=== PATIENT | male | born 1985 | race Caucasian/White ===

== ENCOUNTER 2016-12-15 13:03 | Emergency (ER) | payer SELFPAY ==
[~2016-12-15] VITALS: Ht 188 cm; Wt 118.0 kg
[~2016-12-15 13:03] MED LIST: AMOXICILLIN500 MG PO; AUGMENTIN875 MG PO; FLOXIN OTIC SOLN5 ML BOTH EARS; MEDROL DOSEPAK4 MG PO; MOTRIN800 MG PO; TESSALON PERLE100 MG PO
[2016-12-15 13:57] LABS: MCH 29.7 PG (29.0-34.0); MCHC 32.8 G/DL (30.0-36.0); MCV 90.7 FL (86-99); MEAN PLAT.VOLUME 11.1 uM^3 (9.0-12.4); PLATELET COUNT 159 K/uL (156-360); RBC DIS.WIDTH-CV 12.4 % (11.8-14.6); RBC DIS.WIDTH-SD 41.1 % (39-53); RED BLOOD COUNT 3.97 M/uL (4.00-5.50); WHITE BLOOD COUNT 6.1 K/uL (4.1-10.2)
[2016-12-15 14:12] LABS: CHLORIDE 105 mEq/L (99-109); POTASSIUM 4.1 mEq/L (3.7-5.4); SODIUM 140 mEq/L (136-147)
[2016-12-15 14:14] LABS: GLUCOSE 116 mg/dL (70-99)
[2016-12-15 14:15] LABS: ANION GAP 7 MEQ/L (2-14)
[2016-12-15 14:18] LABS: GFR ESTIMATE (CALCULATED) > 59 mL/min/
[2016-12-15 14:19] LABS: UREA NITROGEN (BUN) 6 mg/dL (9-23)
[2016-12-15] MEDS ORDERED: RANITIDINE HCL150 MG PO (14:39)
[2016-12-15] MEDS ORDERED: PROTONIX40 MG PO (15:14)
[2016-12-15] MEDS ORDERED: CARAFATE1 GM PO (15:14)
[2016-12-15 15:30] VITALS: BP 110/67
== END 2016-12-15 15:30 | disposition home or self-care (01) ==
LOC: EME 13:03
DX: K29.70 Gastritis, unspecified, without bleeding (principal); K21.9 Gastro-esophageal reflux disease without esophagitis; F17.200 Nicotine dependence, unspecified, uncomplicated; Z88.6 Allergy status to analgesic agent
CPT/HCPCS: 80048; 85027; 86900; 86901; 99281; 99283

== ENCOUNTER 2017-03-04 23:42 | Emergency (ER) | payer SELFPAY ==
[~2017-03-04] VITALS: Ht 182.9 cm; Wt 127.0 kg
[~2017-03-04 23:42] MED LIST changes: +CARAFATE1 GM PO; +PROTONIX40 MG PO; +RANITIDINE HCL150 MG PO
[2017-03-05 00:42] LABS: HEMATOCRIT 38.1 % (38.0-50.0); MCH 26.3 PG (29.0-34.0); MCHC 31.5 G/DL (30.0-36.0); MCV 83.6 FL (86-99); MEAN PLAT.VOLUME 11.7 uM^3 (9.0-12.4); PLATELET COUNT 220 K/uL (156-360); RBC DIS.WIDTH-CV 13.5 % (11.8-14.6); RBC DIS.WIDTH-SD 41.6 % (39-53); RED BLOOD COUNT 4.56 M/uL (4.00-5.50); WHITE BLOOD COUNT 19.6 K/uL (4.1-10.2)
[2017-03-05 01:03] LABS: CHLORIDE 104 mEq/L (99-109); POTASSIUM 4.3 mEq/L (3.7-5.4); SODIUM 139 mEq/L (136-147); TROP-I INTERPRETATION NEGATIVE; TROPONIN-I 0.02 ng/mL (0.0-0.30)
[2017-03-05 01:05] LABS: GLUCOSE 161 mg/dL (70-99)
[2017-03-05 01:06] LABS: ANION GAP 12 MEQ/L (2-14)
[2017-03-05 01:07] LABS: TOTAL BILIRUBIN 0.1 mg/dL (0.0-1.0)
[2017-03-05 01:08] LABS: SERUM ETHYL ALCOHOL < 10 mg/dL
[2017-03-05 01:09] LABS: ALKALINE PHOSPHATASE 70 IU/L (3-129); GFR ESTIMATE (CALCULATED) > 59 mL/min/
[2017-03-05 01:11] LABS: UREA NITROGEN (BUN) 10 mg/dL (9-23)
[2017-03-05 01:12] LABS: SALICYLATE < 5.0 MG/DL (15-30)
[2017-03-05 01:13] LABS: LIPASE 13 U/L (1.0-51.0)
[2017-03-05 01:37] LABS: ADD MEDTOX COMMENT Y; AMPHETAMINE NEGATIVE (500 ng/mL); BARBITURATES NEGATIVE (200 ng/mL); BENZODIAZEPINES NEGATIVE (150 ng/mL); COCAINE NEGATIVE (150 ng/mL); INTERNAL CONTROLS VALID? YES; METHADONE NEGATIVE (200 ng/mL); METHAMPHETAMINE PRESUMPTIVE POSITIVE (500 ng/mL); OPIATES (MORPHINE) PRESUMPTIVE POSITIVE (100 ng/mL); OXYCODONE PRESUMPTIVE POSITIVE (100 ng/mL); PHENCYCLIDINE NEGATIVE (25 ng/mL); PROPOXYPHENE NEGATIVE (300 ng/mL); THC CANNABINOIDS PRESUMPTIVE POSITIVE (50 ng/mL); TRICYCLIC ANTIDEPRESSANTS NEGATIVE (300 ng/mL)
[2017-03-05 02:26] LABS: OPIATES QUANTITATIVE VALUE 0 NG/ML
[2017-03-05] MEDS ORDERED: NARCAN4 MG NS (04:07)
[2017-03-05 05:03] VITALS: BP 118/68
== END 2017-03-05 05:08 | disposition home or self-care (01) ==
LOC: EME 23:42
PROVIDERS: Emergency Medicine
DX: T40.601A Poisoning by unspecified narcotics, accidental (unintentional), initial encounter (principal); F11.10 Opioid abuse, uncomplicated; K21.9 Gastro-esophageal reflux disease without esophagitis; F17.200 Nicotine dependence, unspecified, uncomplicated
CPT/HCPCS: 71010; 80053; 83690; 84484; 84999; 85027; 93005; 99281; 99285; G0480; J2310; J7030

== ENCOUNTER 2017-05-26 20:17 | Emergency (ER) | payer OTHER ==
[~2017-05-26] VITALS: Ht 188 cm; Wt 118.2 kg
[~2017-05-26 20:17] MED LIST changes: +NARCAN4 MG NS
[2017-05-26 20:23] VITALS: BP 98/60
[2017-05-26] MEDS ORDERED: TRAMADOL HCL50 MG PO (21:58)
[2017-05-26] MEDS ORDERED: SKELAXIN800 MG PO (21:58)
[2017-05-26] MEDS ORDERED: MOTRIN600 MG PO (21:58)
== END 2017-05-26 22:26 | disposition home or self-care (01) ==
LOC: EME 20:17
DX: M26.622 Arthralgia of left temporomandibular joint (principal); K02.9 Dental caries, unspecified; H61.23 Impacted cerumen, bilateral
CPT/HCPCS: 99281; 99284

== ENCOUNTER 2017-05-30 21:05 | Emergency (ER) | payer OTHER ==
[~2017-05-30] VITALS: Ht 188 cm; Wt 111.3 kg
[~2017-05-30 21:05] MED LIST changes: +MOTRIN600 MG PO; +SKELAXIN800 MG PO; +TRAMADOL HCL50 MG PO
[2017-05-30 22:23] LABS: HEMATOCRIT 40.1 % (38.0-50.0); MCH 26.3 PG (29.0-34.0); MCHC 33.2 G/DL (30.0-36.0); MCV 79.4 FL (86-99); MEAN PLAT.VOLUME 13.6 uM^3 (9.0-12.4); PLATELET COUNT 199 K/uL (156-360); RBC DIS.WIDTH-CV 15.4 % (11.8-14.6); RBC DIS.WIDTH-SD 43.9 % (39-53); RED BLOOD COUNT 5.05 M/uL (4.00-5.50); WHITE BLOOD COUNT 11.7 K/uL (4.1-10.2)
[2017-05-30 22:48] LABS: ANION GAP 15 MEQ/L (2-14); CHLORIDE 100 MEQ/L (99-109); POTASSIUM 2.8 MEQ/L (3.7-5.4); SAMPLE HEMOLYSIS CHECK 0; SAMPLE ICTERIC CHECK 0; SAMPLE LIPEMIA CHECK 0; SODIUM 139 MEQ/L (136-147); TOTAL BILIRUBIN 0.6 MG/DL (0.0-1.0)
[2017-05-30 22:53] LABS: ALKALINE PHOSPHATASE 88 IU/L (3-129); GFR ESTIMATE (CALCULATED) > 59 mL/min/; GLUCOSE 108 mg/dL (70-99); UREA NITROGEN (BUN) 12 mg/dL (9-23)
[2017-05-31 02:35] LABS: CHLORIDE 106 mEq/L (99-109); POTASSIUM 3.1 mEq/L (3.7-5.4); SODIUM 143 mEq/L (136-147)
[2017-05-31 02:36] LABS: GLUCOSE 106 mg/dL (70-99)
[2017-05-31 02:38] LABS: ANION GAP 16 MEQ/L (2-14)
[2017-05-31 02:40] LABS: GFR ESTIMATE (CALCULATED) > 59 mL/min/
[2017-05-31 02:41] LABS: UREA NITROGEN (BUN) 10 mg/dL (9-23)
[2017-05-31] MEDS ORDERED: ZOFRAN ODT4 MG PO (02:45)
[2017-05-31 03:31] VITALS: BP 140/93
== END 2017-05-31 03:32 | disposition home or self-care (01) ==
LOC: EME 21:05
PROVIDERS: Physician Assistant
DX: K52.9 Noninfective gastroenteritis and colitis, unspecified (principal); E87.6 Hypokalemia; K21.9 Gastro-esophageal reflux disease without esophagitis; F17.200 Nicotine dependence, unspecified, uncomplicated
CPT/HCPCS: 71020; 80048; 80053; 81003; 85027; 93005; 99281; 99285; J2405; J3480; J7030; S0028

== ENCOUNTER 2017-07-11 16:55 | Inpatient (IN) | payer OTHER ==
[~2017-07-11] VITALS: Ht 188 cm; Wt 123.4 kg
[~2017-07-11 16:55] MED LIST changes: +ZOFRAN ODT4 MG PO
[2017-07-11 18:16] LABS: EOSINOPHIL (%) 0.1 % (0-5); HEMATOCRIT 38.6 % (38.0-50.0); IMMATURE GRANULOCYTE (%) 0.7 % (0.0-0.7); IMMATURE GRANULOCYTE COUNT 0.2 K/uL; INSTRUMENT ABS NEUTROPHIL CT 23.3 K/uL; LYMPHOCYTE COUNT 1.1 K/uL (1.0-2.8); MCH 26.2 PG (29.0-34.0); MCHC 30.3 G/DL (30.0-36.0); MCV 86.5 FL (86-99); MONOCYTE (%) 3.2 % (3-12); MONOCYTE COUNT 0.8 K/uL (0-0.8); NEUTROPHIL (%) 91.7 % (45-76); NEUTROPHIL COUNT 23.3 K/uL (1.8-6.4); NRBC (%) 0.1 /100 WBC (0-0); PLATELET COUNT 169 K/uL (156-360); RBC DIS.WIDTH-CV 15.3 % (11.8-14.6); RED BLOOD COUNT 4.46 M/uL (4.00-5.50); WHITE BLOOD COUNT 25.4 K/uL (4.1-10.2)
[2017-07-11 18:22] LABS: INTER. NORMALIZED RATIO 1.2; PROTHROMBIN TIME 13.2 SEC (10.2-12.9)
[2017-07-11 18:35] LABS: PTT 20.4 SEC (25-37)
[2017-07-11 18:36] LABS: CHLORIDE 108 mEq/L (99-109)
[2017-07-11 18:37] LABS: MAGNESIUM 2.7 mg/dL (1.3-2.7); POTASSIUM 4.6 mEq/L (3.7-5.4); SODIUM 142 mEq/L (136-147)
[2017-07-11 18:39] LABS: GLUCOSE 90 mg/dL (70-99)
[2017-07-11 18:40] LABS: ANION GAP 21 MEQ/L (2-14)
[2017-07-11 18:42] LABS: GFR ESTIMATE (CALCULATED) 32 mL/min/; SERUM ETHYL ALCOHOL < 10 mg/dL
[2017-07-11 18:43] LABS: UREA NITROGEN (BUN) 19 mg/dL (9-23)
[2017-07-11 18:51] LABS: TROP-I INTERPRETATION POSITIVE
[2017-07-11 19:01] LABS: TROPONIN-I 1.39 ng/mL (0.0-0.30)
[2017-07-11 19:54] LABS: ADD MIUA? YES; BILIRUBIN NEGATIVE; BLOOD MODERATE; COLOR AMBER ((YELLOW)); GLUCOSE (STRIP) 50; KETONES NEGATIVE; LEUKOCYTES NEGATIVE; NITRITE NEGATIVE; PROTEIN (STRIP) 100; UROBILINOGEN 0.2 MG/DL (0.2-1.0)
[2017-07-11 19:57] LABS: AMPHETAMINE NEGATIVE (500 ng/mL); BARBITURATES NEGATIVE (200 ng/mL); BENZODIAZEPINES NEGATIVE (150 ng/mL); COCAINE NEGATIVE (150 ng/mL); INTERNAL CONTROLS VALID? YES; METHADONE NEGATIVE (200 ng/mL); METHAMPHETAMINE NEGATIVE (500 ng/mL); OPIATES (MORPHINE) PRESUMPTIVE POSITIVE (100 ng/mL); OXYCODONE PRESUMPTIVE POSITIVE (100 ng/mL); PHENCYCLIDINE NEGATIVE (25 ng/mL); PROPOXYPHENE NEGATIVE (300 ng/mL); THC CANNABINOIDS PRESUMPTIVE POSITIVE (50 ng/mL); TRICYCLIC ANTIDEPRESSANTS NEGATIVE (300 ng/mL)
[2017-07-11 19:58] LABS: ADD MEDTOX COMMENT Y
[2017-07-11 20:14] LABS: RED BLOOD CELLS 0-5 /HPF (0-5); WHITE BLOOD CELLS 0-5 /HPF (0-5)
[2017-07-11 20:15] LABS: BACTERIA 2+ /HPF; CASTS PRESENT /LPF; COARSE GRANULAR CASTS 0-5 /LPF; CRYSTALS NONE SEEN; EPITHELIAL CELLS RARE /HPF; FINE GRANULAR CASTS 0-5 /LPF; HYALINE CASTS 0-5 /LPF; MUCUS NONE SEEN /LPF; UCUL ADDED? YES
[2017-07-11 20:41] LABS: CREATINE KINASE 47800 IU/L (1-294)
[2017-07-11 21:45] VITALS: BP 139/90
[2017-07-11 21:48] VITALS: BP 139/90
[2017-07-11 22:00] VITALS: BP 160/84
[2017-07-11] MEDS ORDERED: SKELAXIN800 MG PO (22:11)
[2017-07-11] MEDS ORDERED: GABAPENTIN600 MG PO (22:12)
[2017-07-11] MEDS ORDERED: SOMA250 MG PO (22:12)
[2017-07-11] MEDS ORDERED: TRAMADOL HCL50 MG PO (22:13)
[2017-07-11] MEDS ORDERED: MOTRIN600 MG PO (22:14)
[2017-07-11] MEDS ORDERED: VYVANSE30 MG PO (22:14)
[2017-07-11] MEDS ORDERED: KLONOPIN0.5 M1 PO (22:16)
[2017-07-11 22:58] LABS: METH RESISTANT S AUREUS PCR NEGATIVE (NEGATIVE)
[2017-07-11 23:00] VITALS: BP 131/74
[2017-07-11 23:05] LABS: PROBE CHECK PASS; SPECIMEN PROCESSING CONTROL PASS
[2017-07-12] VITALS (24 sets, daily range): BP systolic 0–153; BP diastolic 0–90
[2017-07-12 02:33] LABS: CHLORIDE 111 mEq/L (99-109); POTASSIUM 5.2 mEq/L (3.7-5.4); SODIUM 140 mEq/L (136-147)
[2017-07-12 02:35] LABS: GLUCOSE 95 mg/dL (70-99)
[2017-07-12 02:36] LABS: ANION GAP 12 MEQ/L (2-14)
[2017-07-12 02:38] LABS: GFR ESTIMATE (CALCULATED) 31 mL/min/
[2017-07-12 02:39] LABS: TROP-I INTERPRETATION POSITIVE; UREA NITROGEN (BUN) 25 mg/dL (9-23)
[2017-07-12 03:25] LABS: CREATINE KINASE 33668 IU/L (1-294)
[2017-07-12 03:26] LABS: TROPONIN-I 2.33 ng/mL (0.0-0.30)
[2017-07-12 08:44] LABS: TROP-I INTERPRETATION POSITIVE; TROPONIN-I 2.35 ng/mL (0.0-0.30)
[2017-07-12] MEDS ORDERED: PRILOSEC20 MG PO (14:05)
[2017-07-12 14:10] LABS: TROP-I INTERPRETATION POSITIVE; TROPONIN-I 1.49 ng/mL (0.0-0.30)
[2017-07-13] VITALS (24 sets, daily range): BP systolic 116–150; BP diastolic 70–90
[2017-07-13 07:38] LABS: HEMATOCRIT 24.7 % (38.0-50.0); MCH 26.4 PG (29.0-34.0); MCHC 32.4 G/DL (30.0-36.0); MCV 81.5 FL (86-99); NRBC (%) 0.1 /100 WBC (0-0); RBC DIS.WIDTH-CV 15.8 % (11.8-14.6); RBC DIS.WIDTH-SD 47.3 % (39-53); RED BLOOD COUNT 3.03 M/uL (4.00-5.50); WHITE BLOOD COUNT 18.1 K/uL (4.1-10.2)
[2017-07-13 08:14] LABS: BASOPHIL COUNT 0.1 K/uL (0-0.1); EOSINOPHIL (%) 0.2 % (0-5); IMMATURE GRANULOCYTE (%) 1.2 % (0.0-0.7); IMMATURE GRANULOCYTE COUNT 0.2 K/uL; INSTRUMENT ABS NEUTROPHIL CT 15.4 K/uL; LYMPHOCYTE COUNT 1.6 K/uL (1.0-2.8); MONOCYTE (%) 4.9 % (3-12); MONOCYTE COUNT 0.9 K/uL (0-0.8); NEUTROPHIL (%) 84.7 % (45-76); NEUTROPHIL COUNT 15.4 K/uL (1.8-6.4)
[2017-07-13 08:15] LABS: ANION GAP 10 MEQ/L (2-14); CHLORIDE 113 MEQ/L (99-109); GLUCOSE 86 mg/dL (70-99); MAGNESIUM 1.7 mg/dl (1.3-2.7); POTASSIUM 4.3 MEQ/L (3.7-5.4); SAMPLE HEMOLYSIS CHECK 0; SAMPLE ICTERIC CHECK 0; SAMPLE LIPEMIA CHECK 0; SODIUM 139 MEQ/L (136-147)
[2017-07-13 08:23] LABS: GFR ESTIMATE (CALCULATED) 14 mL/min/; UREA NITROGEN (BUN) 40 mg/dL (9-23)
[2017-07-13 10:51] LABS: HEMATOLOGY COMMENT 1 SMEAR COMPATIBLE; MEAN PLAT.VOLUME 13.1 uM^3 (9.0-12.4); PLAT.SUFFICIENCY DECREASED
[2017-07-13 10:52] LABS: PLATELET COUNT 105 K/uL (156-360)
[2017-07-13 11:35] LABS: CREATINE KINASE 23650 IU/L (1-294)
[2017-07-13 11:46] LABS: HBSG INDEX 0.24; HPCA INDEX 0.15
[2017-07-13 11:47] LABS: ANTI-HEPATITIS A VIRUS (IGM) Nonreactive; HAV INDEX 0.11
[2017-07-13 11:48] LABS: ANTI-HEPATITIS B CORE (IGM) Nonreactive
[2017-07-13 12:29] LABS: AHBS INDEX 0.26; HEPATITIS B SURFACE ANTIBODY Nonreactive
[2017-07-14] VITALS (24 sets, daily range): BP systolic 118–151; BP diastolic 62–92
[2017-07-14 05:20] LABS: BASOPHIL COUNT 0.1 K/uL (0-0.1); EOSINOPHIL (%) 0.2 % (0-5); IMMATURE GRANULOCYTE COUNT 0.4 K/uL; INSTRUMENT ABS NEUTROPHIL CT 14.8 K/uL; LYMPHOCYTE COUNT 1.5 K/uL (1.0-2.8); MCH 26.1 PG (29.0-34.0); MCHC 32.9 G/DL (30.0-36.0); MCV 79.2 FL (86-99); MEAN PLAT.VOLUME 12.3 uM^3 (9.0-12.4); MONOCYTE COUNT 0.9 K/uL (0-0.8); NEUTROPHIL COUNT 14.8 K/uL (1.8-6.4); PLATELET COUNT 104 K/uL (156-360); RBC DIS.WIDTH-CV 15.4 % (11.8-14.6); RBC DIS.WIDTH-SD 44.8 % (39-53); RED BLOOD COUNT 3.03 M/uL (4.00-5.50); WHITE BLOOD COUNT 17.7 K/uL (4.1-10.2)
[2017-07-14 06:15] LABS: ALKALINE PHOSPHATASE 60 IU/L (3-129); ANION GAP 11 MEQ/L (2-14); CHLORIDE 104 MEQ/L (99-109); CREATINE KINASE 10065 IU/L (1-294); GFR ESTIMATE (CALCULATED) 13 mL/min/; GLUCOSE 98 mg/dL (70-99); MAGNESIUM 1.8 mg/dl (1.3-2.7); POTASSIUM 3.8 MEQ/L (3.7-5.4); SAMPLE HEMOLYSIS CHECK 0; SAMPLE ICTERIC CHECK 0; SAMPLE LIPEMIA CHECK 0; SODIUM 139 MEQ/L (136-147); TOTAL BILIRUBIN 0.5 MG/DL (0.0-1.0); UREA NITROGEN (BUN) 33 mg/dL (9-23); URIC ACID 6.9 mg/dL (3.1-9.2)
[2017-07-15] VITALS (21 sets, daily range): BP systolic 120–150; BP diastolic 58–88
[2017-07-15 05:20] LABS: EOSINOPHIL (%) 0.8 % (0-5); EOSINOPHIL COUNT 0.1 K/uL (0-0.3); HEMATOCRIT 23.4 % (38.0-50.0); IMMATURE GRANULOCYTE (%) 0.8 % (0.0-0.7); IMMATURE GRANULOCYTE COUNT 0.1 K/uL; INSTRUMENT ABS NEUTROPHIL CT 11.3 K/uL; LYMPHOCYTE COUNT 1.7 K/uL (1.0-2.8); MCH 25.7 PG (29.0-34.0); MCHC 32.5 G/DL (30.0-36.0); MCV 79.1 FL (86-99); MEAN PLAT.VOLUME 12.1 uM^3 (9.0-12.4); MONOCYTE (%) 9.1 % (3-12); MONOCYTE COUNT 1.3 K/uL (0-0.8); NEUTROPHIL (%) 77.5 % (45-76); NEUTROPHIL COUNT 11.3 K/uL (1.8-6.4); PLATELET COUNT 117 K/uL (156-360); RBC DIS.WIDTH-CV 15.1 % (11.8-14.6); RBC DIS.WIDTH-SD 43.8 % (39-53); RED BLOOD COUNT 2.96 M/uL (4.00-5.50); WHITE BLOOD COUNT 14.5 K/uL (4.1-10.2)
[2017-07-15 05:55] LABS: ANION GAP 8 MEQ/L (2-14); CHLORIDE 103 MEQ/L (99-109); CREATINE KINASE 3923 IU/L (1-294); GFR ESTIMATE (CALCULATED) 15 mL/min/; GLUCOSE 91 mg/dL (70-99); MAGNESIUM 1.8 mg/dl (1.3-2.7); POTASSIUM 3.8 MEQ/L (3.7-5.4); SAMPLE HEMOLYSIS CHECK 0; SAMPLE ICTERIC CHECK 0; SAMPLE LIPEMIA CHECK 0; SODIUM 137 MEQ/L (136-147); UREA NITROGEN (BUN) 26 mg/dL (9-23)
[2017-07-16 06:13] LABS: EOSINOPHIL (%) 4.2 % (0-5); EOSINOPHIL COUNT 0.5 K/uL (0-0.3); HEMATOCRIT 23.3 % (38.0-50.0); IMMATURE GRANULOCYTE (%) 1.2 % (0.0-0.7); IMMATURE GRANULOCYTE COUNT 0.2 K/uL; INSTRUMENT ABS NEUTROPHIL CT 9.5 K/uL; LYMPHOCYTE COUNT 1.2 K/uL (1.0-2.8); MCH 25.6 PG (29.0-34.0); MCHC 32.6 G/DL (30.0-36.0); MCV 78.5 FL (86-99); MEAN PLAT.VOLUME 12.5 uM^3 (9.0-12.4); MONOCYTE (%) 11.1 % (3-12); MONOCYTE COUNT 1.4 K/uL (0-0.8); NEUTROPHIL (%) 74.1 % (45-76); NEUTROPHIL COUNT 9.5 K/uL (1.8-6.4); PLATELET COUNT 146 K/uL (156-360); RBC DIS.WIDTH-CV 15.2 % (11.8-14.6); RBC DIS.WIDTH-SD 43.4 % (39-53); RED BLOOD COUNT 2.97 M/uL (4.00-5.50); WHITE BLOOD COUNT 12.9 K/uL (4.1-10.2)
[2017-07-16 06:39] LABS: ANION GAP 10 MEQ/L (2-14); CHLORIDE 101 MEQ/L (99-109); GFR ESTIMATE (CALCULATED) 10 mL/min/; GLUCOSE 85 mg/dL (70-99); POTASSIUM 3.8 MEQ/L (3.7-5.4); SAMPLE HEMOLYSIS CHECK 0; SAMPLE ICTERIC CHECK 0; SAMPLE LIPEMIA CHECK 0; SODIUM 136 MEQ/L (136-147)
[2017-07-16 06:44] LABS: UREA NITROGEN (BUN) 48 mg/dL (9-23)
[2017-07-16 07:51] VITALS: BP 129/62
[2017-07-16 17:16] VITALS: BP 134/64
[2017-07-17 00:24] VITALS: BP 149/70
[2017-07-17 07:08] LABS: BASOPHIL COUNT 0.1 K/uL (0-0.1); EOSINOPHIL (%) 5.5 % (0-5); EOSINOPHIL COUNT 0.6 K/uL (0-0.3); HEMATOCRIT 24.6 % (38.0-50.0); IMMATURE GRANULOCYTE (%) 2.2 % (0.0-0.7); IMMATURE GRANULOCYTE COUNT 0.2 K/uL; INSTRUMENT ABS NEUTROPHIL CT 6.5 K/uL; LYMPHOCYTE COUNT 1.6 K/uL (1.0-2.8); MCH 26.3 PG (29.0-34.0); MCHC 32.9 G/DL (30.0-36.0); MCV 79.9 FL (86-99); MEAN PLAT.VOLUME 12.2 uM^3 (9.0-12.4); MONOCYTE (%) 11.3 % (3-12); MONOCYTE COUNT 1.1 K/uL (0-0.8); NEUTROPHIL (%) 64.6 % (45-76); NEUTROPHIL COUNT 6.5 K/uL (1.8-6.4); PLATELET COUNT 174 K/uL (156-360); RBC DIS.WIDTH-SD 44.1 % (39-53); RED BLOOD COUNT 3.08 M/uL (4.00-5.50); WHITE BLOOD COUNT 10.1 K/uL (4.1-10.2)
[2017-07-17 07:29] LABS: ANION GAP 11 MEQ/L (2-14); CHLORIDE 99 MEQ/L (99-109); GLUCOSE 75 mg/dL (70-99); SAMPLE HEMOLYSIS CHECK 0; SAMPLE ICTERIC CHECK 0; SAMPLE LIPEMIA CHECK 0; SODIUM 136 MEQ/L (136-147); UREA NITROGEN (BUN) 40 mg/dL (9-23)
[2017-07-17 07:31] LABS: CREATINE KINASE 1058 IU/L (1-294); GFR ESTIMATE (CALCULATED) 12 mL/min/
[2017-07-17 08:49] VITALS: BP 134/82
[2017-07-17 16:35] VITALS: BP 132/75
[2017-07-17 23:24] VITALS: BP 135/67
[2017-07-18 07:20] LABS: BASOPHIL COUNT 0.1 K/uL (0-0.1); EOSINOPHIL (%) 7.2 % (0-5); EOSINOPHIL COUNT 0.8 K/uL (0-0.3); HEMATOCRIT 24.5 % (38.0-50.0); IMMATURE GRANULOCYTE (%) 2.9 % (0.0-0.7); IMMATURE GRANULOCYTE COUNT 0.3 K/uL; INSTRUMENT ABS NEUTROPHIL CT 6.7 K/uL; LYMPHOCYTE COUNT 1.9 K/uL (1.0-2.8); MCH 24.7 PG (29.0-34.0); MCHC 31.4 G/DL (30.0-36.0); MCV 78.5 FL (86-99); MEAN PLAT.VOLUME 11.8 uM^3 (9.0-12.4); MONOCYTE (%) 9.5 % (3-12); NEUTROPHIL (%) 62.5 % (45-76); NEUTROPHIL COUNT 6.7 K/uL (1.8-6.4); NRBC (%) 0.2 /100 WBC (0-0); RBC DIS.WIDTH-CV 15.1 % (11.8-14.6); RBC DIS.WIDTH-SD 43.1 % (39-53); RED BLOOD COUNT 3.12 M/uL (4.00-5.50); WHITE BLOOD COUNT 10.7 K/uL (4.1-10.2)
[2017-07-18 07:41] LABS: PLATELET COUNT 228 K/uL (156-360)
[2017-07-18 08:00] VITALS: BP 138/73
[2017-07-18 08:52] LABS: ANION GAP 11 MEQ/L (2-14); CHLORIDE 99 MEQ/L (99-109); CREATINE KINASE 813 IU/L (1-294); GFR ESTIMATE (CALCULATED) 9 mL/min/; GLUCOSE 85 mg/dL (70-99); POTASSIUM 4.1 MEQ/L (3.7-5.4); SAMPLE HEMOLYSIS CHECK 0; SAMPLE ICTERIC CHECK 0; SAMPLE LIPEMIA CHECK 0; SODIUM 136 MEQ/L (136-147); UREA NITROGEN (BUN) 57 mg/dL (9-23)
[2017-07-18 16:14] VITALS: BP 166/75
[2017-07-19 00:03] VITALS: BP 136/67
[2017-07-19 07:21] LABS: HEMATOCRIT 23.8 % (38.0-50.0); MCH 26.3 PG (29.0-34.0); MCHC 33.2 G/DL (30.0-36.0); MCV 79.3 FL (86-99); MEAN PLAT.VOLUME 12.1 uM^3 (9.0-12.4); PLATELET COUNT 267 K/uL (156-360); RBC DIS.WIDTH-CV 15.8 % (11.8-14.6); RBC DIS.WIDTH-SD 44.8 % (39-53); WHITE BLOOD COUNT 13.6 K/uL (4.1-10.2)
[2017-07-19 07:51] LABS: ANION GAP 11 MEQ/L (2-14); CHLORIDE 101 MEQ/L (99-109); GLUCOSE 125 mg/dL (70-99); POTASSIUM 4.2 MEQ/L (3.7-5.4); SAMPLE HEMOLYSIS CHECK 0; SAMPLE ICTERIC CHECK 0; SAMPLE LIPEMIA CHECK 0; SODIUM 136 MEQ/L (136-147); UREA NITROGEN (BUN) 68 mg/dL (9-23)
[2017-07-19 07:52] LABS: GFR ESTIMATE (CALCULATED) 7 mL/min/
[2017-07-19 08:00] VITALS: BP 136/72
[2017-07-19 16:05] VITALS: BP 140/69
[2017-07-20 00:01] VITALS: BP 136/60
[2017-07-20 06:58] LABS: HEMATOCRIT 23.3 % (38.0-50.0); MCH 26.6 PG (29.0-34.0); MCV 80.3 FL (86-99); MEAN PLAT.VOLUME 12.2 uM^3 (9.0-12.4); PLATELET COUNT 286 K/uL (156-360); RBC DIS.WIDTH-CV 16.2 % (11.8-14.6); RBC DIS.WIDTH-SD 45.6 % (39-53); WHITE BLOOD COUNT 12.8 K/uL (4.1-10.2)
[2017-07-20 07:19] LABS: ANION GAP 9 MEQ/L (2-14); CHLORIDE 101 MEQ/L (99-109); GFR ESTIMATE (CALCULATED) 9 mL/min/; POTASSIUM 4.6 MEQ/L (3.7-5.4); SAMPLE HEMOLYSIS CHECK 0; SAMPLE ICTERIC CHECK 0; SAMPLE LIPEMIA CHECK 0; SODIUM 139 MEQ/L (136-147); UREA NITROGEN (BUN) 40 mg/dL (9-23)
[2017-07-20 07:21] LABS: GLUCOSE 84 mg/dL (70-99)
[2017-07-20 08:46] VITALS: BP 133/69
[2017-07-20 15:20] VITALS: BP 144/67
[2017-07-20 21:25] LABS: POINT-OF-CARE METER ID UU13113717
[2017-07-21 00:30] VITALS: BP 133/71
[2017-07-21 07:25] VITALS: BP 168/74
[2017-07-21 08:11] LABS: BASOPHIL COUNT 0.1 K/uL (0-0.1); EOSINOPHIL (%) 3.9 % (0-5); EOSINOPHIL COUNT 0.6 K/uL (0-0.3); HEMATOCRIT 22.1 % (38.0-50.0); IMMATURE GRANULOCYTE (%) 1.7 % (0.0-0.7); IMMATURE GRANULOCYTE COUNT 0.2 K/uL; INSTRUMENT ABS NEUTROPHIL CT 10.7 K/uL; LYMPHOCYTE COUNT 1.4 K/uL (1.0-2.8); MCHC 32.1 G/DL (30.0-36.0); MEAN PLAT.VOLUME 12.1 uM^3 (9.0-12.4); MONOCYTE (%) 7.4 % (3-12); NEUTROPHIL (%) 76.8 % (45-76); NEUTROPHIL COUNT 10.7 K/uL (1.8-6.4); PLATELET COUNT 339 K/uL (156-360); RBC DIS.WIDTH-CV 16.4 % (11.8-14.6); RBC DIS.WIDTH-SD 47.2 % (39-53); RED BLOOD COUNT 2.73 M/uL (4.00-5.50)
[2017-07-21] MEDS ORDERED: SKELAXIN800 MG PO (08:29)
[2017-07-21] MEDS ORDERED: GABAPENTIN100 MG PO (08:29)
[2017-07-21] MEDS ORDERED: CALCIUM ACETAT667 MG PO (08:29)
[2017-07-21 08:31] LABS: GFR ESTIMATE (CALCULATED) 8 mL/min/; GLUCOSE 104 mg/dL (70-99); POTASSIUM 4.1 MEQ/L (3.7-5.4); SODIUM 138 MEQ/L (136-147); UREA NITROGEN (BUN) 51 mg/dL (9-23)
[2017-07-21 08:32] LABS: CHLORIDE 101 MEQ/L (99-109)
[2017-07-21 08:43] LABS: ANION GAP 10 MEQ/L (2-14); SAMPLE HEMOLYSIS CHECK 0; SAMPLE ICTERIC CHECK 0; SAMPLE LIPEMIA CHECK 0
== END 2017-07-21 17:07 | disposition home or self-care (01) | DRG 682 ==
LOC: EME 16:55 → 5SOUTH 19:53 → EDOF 19:53 → 4WEST 19:53 → ENRESERV 19:57 → 4WEST 21:30 → ENRESERV 07-15 17:25 → 5SOUTH 07-15 21:35 → ENPENDDIS 07-21 → 5SOUTH 07-21 17:07
PROVIDERS: Emergency Medicine; Hospitalist; Internal Medicine; Internal Medicine Critical Care Medicine; Internal Medicine Nephrology; Surgery
PROC: 06HY33Z Insertion of Infusion Device into Lower Vein, Percutaneous Approach (ICD-10-PCS; principal; 2017-07-13)
PROC: 5A1D70Z Performance of Urinary Filtration, Intermittent, Less than 6 Hours Per Day (ICD-10-PCS; 2017-07-16)
PROC: B544ZZA Ultrasonography of Left Jugular Veins, Guidance (ICD-10-PCS; 2017-07-16)
PROC: 05HN33Z Insertion of Infusion Device into Left Internal Jugular Vein, Percutaneous Approach (ICD-10-PCS; 2017-07-16)
PROC: 05JY3ZZ Inspection of Upper Vein, Percutaneous Approach (ICD-10-PCS; 2017-07-16)
PROC: 02HV33Z Insertion of Infusion Device into Superior Vena Cava, Percutaneous Approach (ICD-10-PCS; 2017-07-21)
PROC: B5181ZA Fluoroscopy of Superior Vena Cava using Low Osmolar Contrast, Guidance (ICD-10-PCS; 2017-07-21)
PROC: 30233N1 Transfusion of Nonautologous Red Blood Cells into Peripheral Vein, Percutaneous Approach (ICD-10-PCS; 2017-07-21)
DX: N17.0 Acute kidney failure with tubular necrosis (principal); J69.0 Pneumonitis due to inhalation of food and vomit; M62.82 Rhabdomyolysis; T40.1X1A Poisoning by heroin, accidental (unintentional), initial encounter; D62 Acute posthemorrhagic anemia; E87.2 Acidosis; E88.09 Other disorders of plasma-protein metabolism, not elsewhere classified; E83.51 Hypocalcemia; F11.90 Opioid use, unspecified, uncomplicated; F12.10 Cannabis abuse, uncomplicated; R06.89 Other abnormalities of breathing; E87.6 Hypokalemia; K59.00 Constipation, unspecified; G89.29 Other chronic pain; F17.200 Nicotine dependence, unspecified, uncomplicated; K21.9 Gastro-esophageal reflux disease without esophagitis; F41.9 Anxiety disorder, unspecified; Z68.34 Body mass index [BMI] 34.0-34.9, adult; Z99.2 Dependence on renal dialysis
CPT/HCPCS: 70450; 71010; 76770; 80048; 80053; 80069; 80074; 81003; 82330; 82550; 82948; 83605; 83735; 84100; 84484; 84550; 84999; 85025; 85027; 85610; 85730; 86706; 86850; 86900; 86901; 86920; 87040; 87070; 87086; 87106; 87205; 87340; 87641; 93005; 94640; 94799; 99281; 99285; C1750; C1752; C1788; G0480; J0295; J0610; J0690; J0692; J0881; J1200; J1644; J1650; J1940; J2250; J2310; J2405; J3010; J7030; J7050; P9016; S0020

== ENCOUNTER → 2017-08-27 | Outpatient (CLI) | payer OTHER ==
[~2017-08-27] MED LIST changes: +ACID CONTROL150 MG PO; +CALCIUM ACETAT667 MG PO; +GABAPENTIN100 MG PO; +GABAPENTIN600 MG PO; +KLONOPIN0.5 M1 PO; +OXYCODONE HCL10 MG PO; +PRILOSEC20 MG PO; +SOMA250 MG PO; +VYVANSE30 MG PO; +VYVANSE40 MG PO
== END | disposition home or self-care (01) ==
LOC: AMB 10:09
PROC: 02PYX3Z Removal of Infusion Device from Great Vessel, External Approach (ICD-10-PCS; principal; 2017-08-27)
DX: Z45.2 Encounter for adjustment and management of vascular access device (principal); N17.9 Acute kidney failure, unspecified

== ENCOUNTER 2017-10-07 15:11 | Emergency (ER) | payer OTHER ==
[~2017-10-07] VITALS: Ht 203.2 cm; Wt 98.3 kg
[2017-10-07 16:22] LABS: BASOPHIL (%) 0.3 % (0-1); BASOPHIL COUNT 0.1 K/uL (0-0.1); EOSINOPHIL (%) 0.1 % (0-5); HEMATOCRIT 40.7 % (38.0-50.0); HEMOGLOBIN 12.9 G/DL (12.5-16.6); IMMATURE GRANULOCYTE (%) 1.3 % (0.0-0.7); LYMPHOCYTE (%) 4.5 % (15-42); MCH 27.4 PG (29.0-34.0); MCHC 31.7 G/DL (30.0-36.0); MCV 86.4 FL (86-99); MONOCYTE (%) 5.2 % (3-12); MONOCYTE COUNT 1.2 K/uL (0-0.8); NEUTROPHIL (%) 88.6 % (45-76); NEUTROPHIL COUNT 20.4 K/uL (1.8-6.4); PLATELET COUNT 163 K/uL (156-360); RBC DIS.WIDTH-CV 15.4 % (11.8-14.6); RBC DIS.WIDTH-SD 48.8 % (39-53); RED BLOOD COUNT 4.71 M/uL (4.00-5.50)
[2017-10-07 16:36] LABS: CHLORIDE 103 mEq/L (99-109); POTASSIUM 4.2 mEq/L (3.7-5.4); SODIUM 135 mEq/L (136-147)
[2017-10-07 16:38] LABS: GLUCOSE 229 mg/dL (70-99)
[2017-10-07 16:41] LABS: SERUM ETHYL ALCOHOL < 10 mg/dL
[2017-10-07 16:42] LABS: CREATININE 1.1 mg/dL (0.6-1.3); GFR ESTIMATE (CALCULATED) > 59 mL/min/ (58.99-99999)
[2017-10-07 16:43] LABS: UREA NITROGEN (BUN) 9 mg/dL (9-23)
[2017-10-07 17:57] LABS: APPEARANCE CLEAR ((CLEAR)); BILIRUBIN NEGATIVE; BLOOD NEGATIVE; COLOR YELLOW ((YELLOW)); GLUCOSE (STRIP) >=500; KETONES NEGATIVE; LEUKOCYTES NEGATIVE; NITRITE NEGATIVE; PROTEIN (STRIP) 30; SPECIFIC GRAVITY 1.017 (1.000-1.030); UROBILINOGEN 0.2 MG/DL (0.2-1.0)
[2017-10-07 18:25] LABS: AMPHETAMINE PRESUMPTIVE POSITIVE (500 ng/mL); BARBITURATES NEGATIVE (200 ng/mL); BENZODIAZEPINES NEGATIVE (150 ng/mL); BUPRENORPHINE NEGATIVE (10 ng/mL); COCAINE NEGATIVE (150 ng/mL); METHADONE NEGATIVE (200 ng/mL); METHAMPHETAMINE NEGATIVE (500 ng/mL); OPIATES (MORPHINE) PRESUMPTIVE POSITIVE (100 ng/mL); OXYCODONE NEGATIVE (100 ng/mL); PHENCYCLIDINE NEGATIVE (25 ng/mL); PROPOXYPHENE NEGATIVE (300 ng/mL); THC CANNABINOIDS NEGATIVE (50 ng/mL); TRICYCLIC ANTIDEPRESSANTS PRESUMPTIVE POSITIVE (300 ng/mL)
[2017-10-07 19:48] VITALS: BP 126/79
== END 2017-10-07 19:49 | disposition home or self-care (01) ==
LOC: EME 15:11
PROVIDERS: Emergency Medicine
DX: T40.1X1A Poisoning by heroin, accidental (unintentional), initial encounter (principal); D72.829 Elevated white blood cell count, unspecified; K21.9 Gastro-esophageal reflux disease without esophagitis; Z87.820 Personal history of traumatic brain injury; F17.200 Nicotine dependence, unspecified, uncomplicated; Z88.5 Allergy status to narcotic agent; Z88.6 Allergy status to analgesic agent
CPT/HCPCS: 71045; 80048; 81003; 84999; 85025; 99281; 99284; G0480; J2310

== ENCOUNTER 2017-10-28 18:05 | Inpatient (IN) | payer OTHER ==
[~2017-10-28] VITALS: Ht 188 cm; Wt 101.8 kg
[2017-10-28 21:00] LABS: APPEARANCE CLEAR ((CLEAR)); BILIRUBIN NEGATIVE; BLOOD NEGATIVE; COLOR YELLOW ((YELLOW)); GLUCOSE (STRIP) NEGATIVE; KETONES NEGATIVE; LEUKOCYTES NEGATIVE; NITRITE NEGATIVE; PROTEIN (STRIP) NEGATIVE; SPECIFIC GRAVITY 1.011 (1.000-1.030); UCUL ADDED? NO; UROBILINOGEN 0.2 MG/DL (0.2-1.0)
[2017-10-28 21:08] LABS: GLUCOSE 117 mg/dL (70-99); TOTAL PROTEIN 5.8 g/dL (6.4-8.3)
[2017-10-28 21:09] LABS: ALBUMIN 3.4 g/dL (3.2-4.8); CHLORIDE 107 mEq/L (99-109); POTASSIUM 3.4 mEq/L (3.7-5.4); SODIUM 142 mEq/L (136-147)
[2017-10-28 21:10] LABS: TOTAL BILIRUBIN 0.3 mg/dL (0.0-1.0)
[2017-10-28 21:11] LABS: SERUM ETHYL ALCOHOL < 10 mg/dL
[2017-10-28 21:12] LABS: ALKALINE PHOSPHATASE 81 IU/L (3-129); BASOPHIL COUNT 0.1 K/uL (0-0.1); CREATININE 0.8 mg/dL (0.6-1.3); EOSINOPHIL (%) 8.7 % (0-5); EOSINOPHIL COUNT 0.7 K/uL (0-0.3); GFR ESTIMATE (CALCULATED) > 59 mL/min/ (58.99-99999); HEMATOCRIT 31.4 % (38.0-50.0); IMMATURE GRANULOCYTE (%) 0.3 % (0.0-0.7); LYMPHOCYTE (%) 35.3 % (15-42); LYMPHOCYTE COUNT 2.8 K/uL (1.0-2.8); MCH 27.9 PG (29.0-34.0); MCHC 33.8 G/DL (30.0-36.0); MCV 82.6 FL (86-99); MONOCYTE (%) 5.8 % (3-12); MONOCYTE COUNT 0.5 K/uL (0-0.8); NEUTROPHIL (%) 48.9 % (45-76); NEUTROPHIL COUNT 3.8 K/uL (1.8-6.4); PLATELET COUNT 136 K/uL (156-360); RBC DIS.WIDTH-CV 13.9 % (11.8-14.6); RBC DIS.WIDTH-SD 41.7 % (39-53); WHITE BLOOD COUNT 7.8 K/uL (4.1-10.2)
[2017-10-28 21:13] LABS: AST (GOT) 16 IU/L (2-34)
[2017-10-28 21:14] LABS: UREA NITROGEN (BUN) 8 mg/dL (9-23)
[2017-10-28 21:15] LABS: ALT (GPT) 15 IU/L (3-49); SALICYLATE < 5.0 MG/DL (15-30)
[2017-10-28 21:16] LABS: ACETAMINOPHEN (TYLENOL) < 10 mcg/mL (10-30)
[2017-10-28 21:28] LABS: AMPHETAMINE NEGATIVE (500 ng/mL); BARBITURATES NEGATIVE (200 ng/mL); BENZODIAZEPINES NEGATIVE (150 ng/mL); BUPRENORPHINE NEGATIVE (10 ng/mL); COCAINE NEGATIVE (150 ng/mL); METHADONE NEGATIVE (200 ng/mL); METHAMPHETAMINE NEGATIVE (500 ng/mL); OPIATES (MORPHINE) NEGATIVE (100 ng/mL); OXYCODONE NEGATIVE (100 ng/mL); PHENCYCLIDINE NEGATIVE (25 ng/mL); PROPOXYPHENE NEGATIVE (300 ng/mL); THC CANNABINOIDS PRESUMPTIVE POSITIVE (50 ng/mL); TRICYCLIC ANTIDEPRESSANTS NEGATIVE (300 ng/mL)
[2017-10-28 21:29] LABS: HEMOGLOBIN 10.6 G/DL (12.5-16.6)
[2017-10-28 23:30] LABS: ACETAMINOPHEN (TYLENOL) < 10 mcg/mL (10-30); SALICYLATE < 5.0 MG/DL (15-30)
[2017-10-29 14:27] VITALS: BP 117/57
[2017-10-29] MEDS ORDERED: MOTRIN800 MG PO (15:15)
[2017-10-29] MEDS ORDERED: LEXAPRO10 MG PO (15:16)
[2017-10-30 08:20] VITALS: BP 123/58
[2017-10-30 15:29] VITALS: BP 122/66
[2017-10-31 08:14] VITALS: BP 113/53
[2017-10-31 15:41] VITALS: BP 137/69
[2017-11-01 07:57] VITALS: BP 132/69
[2017-11-01] MEDS ORDERED: LEXAPRO10 MG PO (09:15)
[2017-11-01] MEDS ORDERED: LIDOCAINE20 MG/1 M5 PO (09:15)
[2017-11-01] MEDS ORDERED: DIVALPROEX SOD500 M1 PO (09:15)
[2017-11-01] MEDS ORDERED: AMOXICILLIN500 MG PO (09:15)
== END 2017-11-01 10:15 | disposition home or self-care (01) | DRG 886 ==
LOC: EME 18:05 → 1WEST 10-29 12:28 → EDOF 10-29 12:28 → 1WEST 10-29 14:23 → ENRESERV 10-29 14:43 → 1WEST 11-01 10:15
PROVIDERS: Emergency Medicine
DX: F63.9 Impulse disorder, unspecified (principal); R45.851 Suicidal ideations; F41.1 Generalized anxiety disorder; F12.10 Cannabis abuse, uncomplicated; F17.210 Nicotine dependence, cigarettes, uncomplicated; F90.9 Attention-deficit hyperactivity disorder, unspecified type; K04.7 Periapical abscess without sinus; K21.9 Gastro-esophageal reflux disease without esophagitis; S00.12XA Contusion of left eyelid and periocular area, initial encounter; Y04.2XXA Assault by strike against or bumped into by another person, initial encounter; Z91.5 Personal history of self-harm; T42.4X2A Poisoning by benzodiazepines, intentional self-harm, initial encounter; H50.012 Monocular esotropia, left eye; Z88.5 Allergy status to narcotic agent; Z56.0 Unemployment, unspecified
CPT/HCPCS: 80053; 80164; 81003; 84999; 85025; 90837; 93005; 97150 GO; 97165 GO; 99281; 99284; G0480; Q0177

== ENCOUNTER 2017-12-30 21:39 | Emergency (ER) | payer OTHER ==
[~2017-12-30] VITALS: Ht 188 cm; Wt 130.0 kg
[~2017-12-30 21:39] MED LIST changes: +DIVALPROEX SOD500 M1 PO; +LEXAPRO10 MG PO; +LIDOCAINE20 MG/1 M5 PO
[2017-12-30 23:33] LABS: HEMATOCRIT 34.7 % (38.0-50.0); HEMOGLOBIN 11.4 G/DL (12.5-16.6); MCH 27.8 PG (29.0-34.0); MCHC 32.9 G/DL (30.0-36.0); MCV 84.6 FL (86-99); PLATELET COUNT 194 K/uL (156-360); RBC DIS.WIDTH-CV 14.9 % (11.8-14.6); WHITE BLOOD COUNT 9.5 K/uL (4.1-10.2)
[2017-12-30 23:46] LABS: CHLORIDE 110 mEq/L (99-109); POTASSIUM 3.7 mEq/L (3.7-5.4); SODIUM 141 mEq/L (136-147)
[2017-12-30 23:48] LABS: GLUCOSE 104 mg/dL (70-99)
[2017-12-30 23:52] LABS: CREATININE 0.8 mg/dL (0.6-1.3); GFR ESTIMATE (CALCULATED) > 59 mL/min/ (58.99-99999)
[2017-12-30 23:53] LABS: UREA NITROGEN (BUN) 12 mg/dL (9-23)
[2017-12-31] LABS: APPEARANCE CLEAR ((CLEAR)); BILIRUBIN NEGATIVE; BLOOD NEGATIVE; COLOR YELLOW ((YELLOW)); GLUCOSE (STRIP) NEGATIVE; KETONES NEGATIVE; LEUKOCYTES NEGATIVE; NITRITE NEGATIVE; PROTEIN (STRIP) 30; SPECIFIC GRAVITY 1.025 (1.000-1.030); UCUL ADDED? NO; UROBILINOGEN 0.2 MG/DL (0.2-1.0)
[2017-12-31 00:17] LABS: AMPHETAMINE NEGATIVE (500 ng/mL); BARBITURATES NEGATIVE (200 ng/mL); BENZODIAZEPINES NEGATIVE (150 ng/mL); BUPRENORPHINE NEGATIVE (10 ng/mL); COCAINE NEGATIVE (150 ng/mL); METHADONE NEGATIVE (200 ng/mL); METHAMPHETAMINE NEGATIVE (500 ng/mL); OPIATES (MORPHINE) NEGATIVE (100 ng/mL); OXYCODONE NEGATIVE (100 ng/mL); PHENCYCLIDINE NEGATIVE (25 ng/mL); PROPOXYPHENE NEGATIVE (300 ng/mL); THC CANNABINOIDS PRESUMPTIVE POSITIVE (50 ng/mL); TRICYCLIC ANTIDEPRESSANTS NEGATIVE (300 ng/mL)
[2017-12-31 01:14] LABS: SERUM ETHYL ALCOHOL < 10 mg/dL
[2017-12-31 13:00] VITALS: BP 118/56
== END 2017-12-31 13:23 ==
LOC: EME 21:39
PROVIDERS: Emergency Medicine
DX: F32.9 Major depressive disorder, single episode, unspecified (principal); T42.4X2A Poisoning by benzodiazepines, intentional self-harm, initial encounter; Z91.5 Personal history of self-harm; F17.200 Nicotine dependence, unspecified, uncomplicated
CPT/HCPCS: 80048; 80164; 81003; 84999; 85027; 90837; 99281; 99285; G0480